=== PATIENT | male | born 1970 | race Caucasian/White ===

== ENCOUNTER 2017-05-03 19:49 | Emergency (ER) | payer SELFPAY ==
[~2017-05-03] VITALS: Ht 172.7 cm; Wt 82.0 kg
[2017-05-04] MEDS ORDERED: IBUPROFEN 800MG TABLET PO ONE (01:15)
[2017-05-04 02:16] VITALS: BP 139/77
== END 2017-05-04 02:29 | disposition home or self-care (01) ==
LOC: ER 21:03
DX: S29.011A Strain of muscle and tendon of front wall of thorax, initial encounter (principal); X58.XXXA Exposure to other specified factors, initial encounter; F17.200 Nicotine dependence, unspecified, uncomplicated; F14.10 Cocaine abuse, uncomplicated; Y93.89 Activity, other specified; Y92.89 Other specified places as the place of occurrence of the external cause; Y99.8 Other external cause status
CPT/HCPCS: 71045; 99283

== ENCOUNTER 2018-11-22 00:52 | Emergency (ER) | payer SELFPAY ==
[~2018-11-22] VITALS: Ht 167.6 cm; Wt 89.0 kg
[2018-11-22] MEDS ORDERED: IBUPROFEN 400MG TABLET PO ONE (02:00)
[2018-11-22] MEDS ORDERED: LEVOFLOXACIN 750MG PREMIX 150 ML IV ONE (02:45)
[2018-11-22] MEDS ORDERED: SODIUM CHLORIDE 0.9% 1000ML BAG (SEPSIS BOLUS) IV ONE (02:45)
[2018-11-22 02:59] LABS: CHLORIDE 111 mEq/L (98-107)
[2018-11-22 03:00] LABS: EOSINOPHILS % 2.5 % (0.0-5.0); HEMOGLOBIN. 15.9 g/dL (14.0-18.0); LYMPHOCYTES % 36.5 % (20.0-50.0); MEAN CORPUSCULAR HEMOGLOBIN 32.6 pg (28.0-32.0); MEAN CORPUSCULAR VOLUME 92.5 fL (80.0-94.0); MEAN PLATELET VOLUME 10.4 fl (7.4-10.4); PLATELET 168 x1000/uL (130-400); RED BLOOD CELL COUNT 4.87 mill/uL (4.7-6.1); RED CELL DISTRIBUTION WIDTH 13.4 % (11.6-14.6)
[2018-11-22 06:05] LABS: CLARITY URINE CLEAR (CLEAR); COLOR URINE YELLOW (YELLOW); KETONES URINE NEGATIVE (NEGATIVE); LEUKOCYTE ESTERASE URINE NEGATIVE (NEGATIVE); NITRITE URINE NEGATIVE (NEGATIVE); OCCULT BLOOD URINE NEGATIVE (NEGATIVE); PROTEIN URINE NEGATIVE (NEGATIVE); SPECIFIC GRAVITY URINE 1.007 (1.005-1.030); UROBILINOGEN URINE 0.2 E.U./dL (0.2-1.0)
[2018-11-22 09:45] VITALS: BP 135/69
== END 2018-11-22 09:48 | disposition home or self-care (01) ==
LOC: ER 00:52
DX: J18.9 Pneumonia, unspecified organism (principal)
CPT/HCPCS: 36415; 71045; 80053; 81003; 83605; 83880; 84484; 85025; 87040; 87070; 87086; 87430; 93005; 96365; 96366; 99284; J1956; J7030